=== PATIENT | female | born 1955 | race Caucasian/White ===

== ENCOUNTER → 2023-05-30 | Outpatient (CLI) | payer OTHER ==
[2023-05-30 09:55] LABS: ALKALINE PHOSPHATASE 70 U/L (46-116); BUN 23 mg/dl (9-23); CHOLESTEROL 240 mg/dL (<200); LDL CHOLESTEROL 164 mg/dL (9-159); SGPT/ALT 27 U/L (5-49); TOTAL PROTEIN 7.1 gm/dL (6.0-8.0); TRIGLYCERIDES 106 mg/dl (<150)
== END ==
LOC: LAB 08:58
PROVIDERS: ATTEND Specialist
DX: Z00.00 Encounter for general adult medical examination without abnormal findings (principal); R00.2 Palpitations; E78.5 Hyperlipidemia, unspecified